=== PATIENT | male | born 1990 | race Caucasian/White ===

== ENCOUNTER 2018-02-07 09:18 | Emergency (ER) | payer SELFPAY ==
[2018-02-07 09:25] VITALS: BP 119/68; PULSE 64; RESP 20; TEMP 98.5; O2SAT 98
--- NOTE | 2018-02-07 09:25 | PD ---
HPI Chief Complaint: Chronic alcohol abuse Time Seen by Provider: 09:25 Travel History International Travel<30 days: No Contact w/Intl Traveler<30days: No Traveled to known affect area: No History of Present Illness HPI 27-year-old male came to the emergency room brought by EMS for "detox". Patient has been in this emergency room multiple times in past 2 weeks. He is from [facility] and is here visiting his grandparents indefinitely. He says he has been staying with some friends. He drinks a lot and drink last night 15 beers. Now he feels like he is "detoxing". Patient was completely normal and answering questions appropriately. Vital signs were stable. Upon asking if he tried any other detox places besides coming to the emergency room he said he did not know any place here. Patient is not suicidal. He says he drinks heavily for past 8-9 years. Patient appears somewhat disheveled. No pain or any other complaints. PFSH Past Medical History Narrative Medical List of his past medical, surgical, social and family history reviewed from the nursing note. Hx Anticoagulant Therapy: No Cardiovascular Problems: No Chemotherapy: No Cerebrovascular Accident: No Diabetes: No Diminished Hearing: No Hepatitis: Yes (C) Respiratory: No Social History Alcohol Use: Yes ( since a teenager. HX of blackouts in the past) Tobacco Use: Yes Substance Use: Yes (marijauna "or anything that makes me feel better") Allergies-Medications (Allergen,Severity, Reaction): Coded Allergies: haloperidol (Verified Allergy, Severe, 02/03/18) "I can't swallow" Comments List of his allergies reviewed from the nursing note Reported Meds & Prescriptions Reported Meds & Active Scripts Active Active Prescriptions or Reported Medications Unobtainable Narrative Medication List of his home medications reviewed from the nursing note Review of Systems Except as stated in HPI: all other systems reviewed are Neg Physical Exam Narrative GENERAL: Awake, alert, no obvious to SKIN: Focused skin assessment warm/dry. Peeling skin on the nose HEAD: Atraumatic. Normocephalic. EYES: Pupils equal and round. No scleral icterus. No injection or drainage. ENT: No nasal bleeding or discharge. Mucous membranes pink and moist. NECK: Trachea midline. No JVD. CARDIOVASCULAR: Regular rate and rhythm. No murmur appreciated. RESPIRATORY: No accessory muscle use. Clear to auscultation. Breath sounds equal bilaterally. GASTROINTESTINAL: Abdomen soft, non-tender, nondistended. Hepatic and splenic margins not palpable. MUSCULOSKELETAL: No obvious deformities. No clubbing. No cyanosis. No edema. NEUROLOGICAL: Awake and alert. No obvious cranial nerve deficits. Motor grossly within normal limits. Normal speech. PSYCHIATRIC: Appropriate mood and affect; insight and judgment normal. Data Data Last Documented VS Orders Orders Ed Discharge Order (02/07/18 09:31) MDM Medical Decision Making Medical Screen Exam Complete: Yes Emergency Medical Condition: Yes Medical Record Reviewed: Yes Differential Diagnosis Chronic alcohol abuse, requesting detox Narrative Course 9:30 AM patient was recommended [facility]. I am medically clearing him. He will be discharged. Procedures EKG Prior to Arrival: No Diagnosis Primary Impression: Chronic alcohol abuse Additional Instructions: Please check and to [facility] for alcohol detox. Scripts Unable to Obtain Active Prescriptions or Reported Meds Disposition: 01 DISCHARGE HOME Condition: Stable Tim Garcia MD February 07, 2018 09:25
== END 2018-02-07 09:49 | disposition home or self-care (01) ==
LOC: NEPD 09:18
DX: F10.10 Alcohol abuse, uncomplicated (principal); F12.90 Cannabis use, unspecified, uncomplicated; Z72.0 Tobacco use
CPT/HCPCS: 99283

== ENCOUNTER 2018-02-12 22:08 | Emergency (ER) | payer OTHER ==
[~2018-02-12] VITALS: Ht 180.3 cm; Wt 75.0 kg
[2018-02-12 22:14] VITALS: BP 119/70; PULSE 90; RESP 18; TEMP 98.5; O2SAT 97
--- NOTE | 2018-02-12 22:24 | PD ---
HPI Chief Complaint: Psychiatric Symptoms Time Seen by Provider: 22:19 Travel History International Travel<30 days: No Contact w/Intl Traveler<30days: No Traveled to known affect area: No History of Present Illness HPI This is a 27-year-old male presents under Dominique act initiated by the Police Department. According to his paperwork the patient was complaining of suicidal thoughts intermittently as well as concern for potential alcohol withdrawal as well as a negative reaction to ingesting marijuana. The patient reports a history of hepatitis C, long-term alcohol use. He is from [place], lives with his mother in a house there. He reports that he traveled down to [place] 2.5 weeks ago in an effort to visit his grandparents in [place]. He reports that he does not get along with his grandparents and they are concerned with the amount that he is drinking and thus he is currently homeless and staying in [facility] but he plans on returning to [place] at some point. Today he reports that he was at the beach and he smoked some marijuana but he believes that the marijuana may have had some other substance. He reports that it caused him to feel "weird" and have hallucinations. He is also complaining of passive suicidal thoughts for several weeks as well as concerned that he may develop alcohol withdrawal symptoms. He reports that today he drank 5 beers. He has been seen here 5 times in the past 2.5 weeks with similar complaints. No other complaints at this time. PFSH Past Medical History Hx Anticoagulant Therapy: No Cardiovascular Problems: No Chemotherapy: No Cerebrovascular Accident: No Diabetes: No Diminished Hearing: No Hepatitis: Yes (C) Respiratory: No Social History Alcohol Use: Yes ( since a teenager. HX of blackouts in the past) Tobacco Use: Yes Substance Use: Yes (marijauna "or anything that makes me feel better") Allergies-Medications (Allergen,Severity, Reaction): Coded Allergies: haloperidol (Verified Allergy, Severe, 02/03/18) "I can't swallow" Reported Meds & Prescriptions Reported Meds & Active Scripts Active Active Prescriptions or Reported Medications Unobtainable Review of Systems Except as stated in HPI: all other systems reviewed are Neg Physical Exam Narrative GENERAL: Well-developed well-nourished male in no acute distress sitting upright in hospital chair in the "signal 20" room SKIN: Warm and dry. HEAD: Atraumatic. Normocephalic. EYES: Pupils equal and round. No scleral icterus. No injection or drainage. ENT: No nasal bleeding or discharge. Mucous membranes pink and moist. NECK: Trachea midline. No JVD. CARDIOVASCULAR: Regular rate and rhythm. No murmur appreciated. RESPIRATORY: No accessory muscle use. Clear to auscultation. Breath sounds equal bilaterally. GASTROINTESTINAL: Abdomen soft, non-tender, nondistended. Hepatic and splenic margins not palpable. MUSCULOSKELETAL: No obvious deformities. No clubbing. No cyanosis. No edema. NEUROLOGICAL: Awake and alert. No obvious cranial nerve deficits. Motor grossly within normal limits. Normal speech. PSYCHIATRIC: Appropriate mood and affect; insight and judgment normal. Data Data Last Documented VS Vital Signs Date Time Temp Pulse Resp B/P (MAP) Pulse Ox O2 Delivery O2 Flow Rate FiO2 02/12/18 22:14 98.5 90 18 119/70 (86) 97 Orders Orders Psych Screen (02/12/18 22:20) Drug Screen, Random Urine (02/12/18 22:20) Alcohol (Ethanol) (02/12/18 22:20) MDM Medical Decision Making Medical Screen Exam Complete: Yes Emergency Medical Condition: Yes Medical Record Reviewed: Yes Differential Diagnosis Homelessness, malingering, alcohol dependence, polysubstance abuse, major depressive disorder, adjustment reaction, acute psychosis Narrative Course 27-year-old male presents under Dominique act for psychiatric evaluation. I reviewed his previous visits. I reviewed his lab work from his past visits. He has elevated liver enzymes secondary to hepatitis C. Typically his alcohol level is elevated as well. His lab work is otherwise unremarkable and will not be repeated today. A drug screen and alcohol level have been ordered. CIWA precautions initiated. Mental health screening discussed with the patient. Psychiatric screen ordered. The patient is medically cleared for psychiatric disposition. Diagnosis Primary Impression: Medical clearance for psychiatric admission Additional Impression: Alcoholism Scripts Unable to Obtain Active Prescriptions or Reported Meds Krish Capps February 12, 2018 22:24
[2018-02-12] MEDS ORDERED: FLUMAZENIL 0.5 MG/5 ML VIAL IV PUSH PRN (22:30)
[2018-02-12] MEDS ORDERED: LORazepam 1 MG TAB PO PRN (22:30)
[2018-02-12] MEDS ORDERED: LORazepam 2 MG/ML VIAL IV PUSH PRN ×4 (22:30)
[2018-02-12] MEDS ORDERED: LORazepam 2 MG TAB PO PRN (22:30)
[2018-02-13 06:49] VITALS: BP 112/57; PULSE 54; RESP 18; TEMP 98.7; O2SAT 99
--- NOTE | 2018-02-13 07:51 | PD ---
History of Present Illness Chief Complaint: Psychiatric Symptoms Time Seen by Provider: 07:15 Travel History International Travel<30 Days: No Contact w/Intl Traveler<30days: No Known affected area: No Legal Status Legal Status: Dominique Act Dominique Act Signed By: [facility], [facility] Manager History of Present Illness: Patient is a 27y/o male , single, no children from [place]. Present to the Emergency Department under a Dominique Act from [facility]'s Department, which states "made contact with Peter after he called into dispatch advising that he was suffering from the symptoms of alcohol withdrawal and having a negative reaction to recently ingesting marijuana. During contact with Peter, he advised to feeding pain that he was having suicidal thoughts on and off for a long time. Peter advised that he is having complications from hepatitis C and that along with his addiction is causing him to have suicidal thoughts. Deputy Barnes asked Peter if he was left alone tonight, if he would perhaps kill himself. Advise advised yes Peter was placed into protective custody under the Dominique act [facility] Patient has been in [place] for 2 1/2 weeks to visit his grandmother in [place]. He states that he has been drinking since the age of 15 year of age and is drinking approximately 10 tall beers per day or more if he has access. He has no mental health history. Endorses that his father is an alcoholic and lives local, but his parents to not want to help him. He smokes, only drug is marijuana and is UDS is positive for marijuana. He has been to [facility] for the assistance with his alcoholism x2 within the past two weeks prior to today. He endorses no suicidal or homicidal ideations at this time. Chart reviewed and patient discussed with PORFIRIO Duffy. Patient is in J-106. he is unkempt and disheveled. Alert and oriented .Gait is steady and normal. Attitude is cooperative. Speech is normal for rate, tone and volume. Affect is sad, flat and blunted. Mood is irritable. Thought process is normal and logical. Thought association is relevant and he thinking is concrete. Fund of knowledge is average . Concentration and attention is adequate. Endorses no suicidal or homicidal ideations. Patient is at low risk for self harm. He endorses that he is an alcoholic and that he wants to stop drinking. He states that he has attempted to stop drinking in the past but is inconsistent in his efforts. He is knowledgeable about AA and the 12 step program. He is articulate and is insight to what he needs to do to become sober. Based on the patient's presentation and desire to become sober will give him information on local resources and lift the [place] Act. PORFIRIO Duffy called [facility] to see if there is a Detox bed and there is no availability at this time. Will refer the patient to [facility] , [address] [place] [address] in [place] , and give him information regarding how to get on the list for Detox at [facility]. Dx: Mood Disorder, Alcohol induced. PFSH Past Medical History Hx Anticoagulant Therapy: No Cardiovascular Problems: No Chemotherapy: No Cerebrovascular Accident: No Diabetes: No Diminished Hearing: No Hepatitis: Yes (C) Respiratory: No Psychiatric History Psychiatric History No history of mental illness or care for mental illness. Hx Psychiatric Treatment: Denies any. No previous suiiced attempts. History of Inpatient Treatment: No Social History Hx Alcohol Use: Yes ( since a teenager. HX of blackouts in the past) Hx Tobacco Use: Yes Hx Substance Use: Yes Substance Use Type: Alcohol, Marijuana Hx of Substance Use Treatment: No Allergies-Medications (Allergen,Severity, Reaction): Coded Allergies: haloperidol (Verified Allergy, Severe, 02/03/18) "I can't swallow" Reported Meds & Prescriptions Reported Meds & Active Scripts Active Active Prescriptions or Reported Medications Unobtainable Mental Status Examination Appearance: Disheveled Consciousness: Alert Orientation: x4 Motor Activity: Normal gait Speech: Unremarkable Language: Adequate Fund of Knowledge: Adequate Attention and Concentration: Adequate Memory: Unremarkable Mood: Sad, Irritable Affect: Flat, Blunt Thought Process & Associations: Intact Thought Content: Appropriate Hallucination Type: None Delusion Type: None Suicidal Ideation: No Suicidal Plan: No Suicidal Intention: No Homicidal Ideation: No Homicidal Plan: No Homicidal Intention: No Insight: Adequate Judgment: Adequate MDM Medical Decision Making Medical Record Reviewed: Yes Assessment/Plan Patient is a 27 y/o male who has been in [place] for 2 1/2 weeks from [place]. He has a long history of alcohol abuse since age 15 and is seeking treatment . He is currently drinking 10 tall beers per day. He has parents locally and a grandmother in [place], but they are not longer supporting him. He has no history of mental illness. He is currently homeless. He endorses no suicidal ideations and is seeking help to stop drinking. At this time their is no Detox bed available. Patient is stable. Will lift the [place] Act and provide information on the [facility] to seek help as an outpatient until he can secure inpatient treatment. He will be provided information on the Detox program at [facility] as well. Orders Orders Psych Screen (02/12/18 22:20) Drug Screen, Random Urine (02/12/18 22:20) Alcohol (Ethanol) (02/12/18 22:20) Alcohol Withdrawal Asmt-Ciwa ONCE (02/12/18 22:20) Flumazenil Inj (Romazicon Inj) (02/12/18 22:30) Lorazepam (Ativan) (02/12/18 22:30) Lorazepam Inj (Ativan Inj) (02/12/18 22:30) Lorazepam (Ativan) (02/12/18 22:30) Lorazepam Inj (Ativan Inj) (02/12/18 22:30) Lorazepam Inj (Ativan Inj) (02/12/18 22:30) Lorazepam Inj (Ativan Inj) (02/12/18 22:30) Diet Regular Basic (02/13/18 Breakfast) Results Vital Signs Date Time Temp Pulse Resp B/P (MAP) Pulse Ox O2 Delivery O2 Flow Rate FiO2 02/13/18 06:49 98.7 54 18 112/57 (75) 99 Room Air 02/12/18 22:14 98.5 90 18 119/70 (86) 97 Laboratory Tests Test 02/12/18 22:30 02/12/18 23:25 Ethyl Alcohol Level 40 Urine Opiates Screen NEG Urine Barbiturates Screen NEG Urine Amphetamines Screen NEG Urine Benzodiazepines Screen NEG Urine Cocaine Screen NEG Urine Cannabinoids Screen POS Diagnosis Primary Impression: Alcohol-induced mood disorder Prescriptions Unable to Obtain Active Prescriptions or Reported Meds Pauline Laboy February 13, 2018 07:51
--- NOTE | 2018-02-13 07:56 | PD ---
Physical Exam Time Seen by Provider: 07:55 Narrative Please refer to previous providers documentation for details surrounding the patient's current visit. Data Data Last Documented VS Vital Signs Date Time Temp Pulse Resp B/P (MAP) Pulse Ox O2 Delivery O2 Flow Rate FiO2 02/13/18 06:49 98.7 54 18 112/57 (75) 99 Room Air Orders Orders Psych Screen (02/12/18 22:20) Drug Screen, Random Urine (02/12/18 22:20) Alcohol (Ethanol) (02/12/18 22:20) Alcohol Withdrawal Asmt-Ciwa ONCE (02/12/18 22:20) Flumazenil Inj (Romazicon Inj) (02/12/18 22:30) Lorazepam (Ativan) (02/12/18 22:30) Lorazepam Inj (Ativan Inj) (02/12/18 22:30) Lorazepam (Ativan) (02/12/18 22:30) Lorazepam Inj (Ativan Inj) (02/12/18 22:30) Lorazepam Inj (Ativan Inj) (02/12/18 22:30) Lorazepam Inj (Ativan Inj) (02/12/18 22:30) Diet Regular Basic (02/13/18 Breakfast) Ed Discharge Order (02/13/18 07:54) Labs Laboratory Tests Test 02/12/18 22:30 02/12/18 23:25 Ethyl Alcohol Level 40 MG/DL Urine Opiates Screen NEG Urine Barbiturates Screen NEG Urine Amphetamines Screen NEG Urine Benzodiazepines Screen NEG Urine Cocaine Screen NEG Urine Cannabinoids Screen POS MDM Medical Record Reviewed: Yes Supervised Visit with [place]: No Narrative Course Patient has been seen and evaluated, medically clear, and evaluated by psychiatry. With no further medical needs, patient is discharged at this time. Diagnosis Primary Impression: Alcohol-induced mood disorder Referrals: [facility] (Out patient) Patient Instructions: Abuse of Alcohol (ED), General Instructions Additional Instruction: Follow-up with a primary care provider Consume alcohol in moderation Return immediately with acute worsening symptoms Scripts Unable to Obtain Active Prescriptions or Reported Meds Disposition: 01 DISCHARGE HOME Condition: Stable Mila Cabello NICK February 13, 2018 07:56
--- NOTE | 2018-02-13 08:00 | PD ---
History of Present Illness Chief Complaint: Psychiatric Symptoms Travel History International Travel<30 Days: No Contact w/Intl Traveler<30days: No Known affected area: No Legal Status Legal Status: Dominique Act Dominique Act Signed By: NeprisJoselin Harper [facility] Past Medical History Hx Anticoagulant Therapy: No Cardiovascular Problems: No Chemotherapy: No Cerebrovascular Accident: No Diabetes: No Diminished Hearing: No Hepatitis: Yes (C) Respiratory: No Psychiatric History Psychiatric History Hx Psychiatric Treatment: Denies any. No previous suiiced attempts. History of Inpatient Treatment: No Social History Hx Alcohol Use: Yes ( since a teenager. HX of blackouts in the past) Hx Tobacco Use: Yes Hx Substance Use: Yes Substance Use Type: Alcohol, Marijuana Hx of Substance Use Treatment: No Allergies-Medications (Allergen,Severity, Reaction): Coded Allergies: haloperidol (Verified Allergy, Severe, 02/03/18) "I can't swallow" Reported Meds & Prescriptions Reported Meds & Active Scripts Active Active Prescriptions or Reported Medications Unobtainable Mental Status Examination Appearance: Disheveled Consciousness: Alert Orientation: x4 Motor Activity: Normal gait Speech: Unremarkable Language: Adequate Fund of Knowledge: Adequate Attention and Concentration: Adequate Memory: Unremarkable Mood: Sad, Irritable Affect: Flat, Blunt Thought Process & Associations: Intact Thought Content: Appropriate Hallucination Type: None Delusion Type: None Suicidal Ideation: No Suicidal Plan: No Suicidal Intention: No Homicidal Ideation: No Homicidal Plan: No Homicidal Intention: No Insight: Adequate Judgment: Adequate MDM Orders Orders Psych Screen (02/12/18 22:20) Drug Screen, Random Urine (02/12/18 22:20) Alcohol (Ethanol) (02/12/18 22:20) Alcohol Withdrawal Asmt-Ciwa ONCE (02/12/18 22:20) Flumazenil Inj (Romazicon Inj) (02/12/18 22:30) Lorazepam (Ativan) (02/12/18 22:30) Lorazepam Inj (Ativan Inj) (02/12/18 22:30) Lorazepam (Ativan) (02/12/18 22:30) Lorazepam Inj (Ativan Inj) (02/12/18 22:30) Lorazepam Inj (Ativan Inj) (02/12/18 22:30) Lorazepam Inj (Ativan Inj) (02/12/18 22:30) Diet Regular Basic (02/13/18 Breakfast) Results Vital Signs Date Time Temp Pulse Resp B/P (MAP) Pulse Ox O2 Delivery O2 Flow Rate FiO2 02/13/18 06:49 98.7 54 18 112/57 (75) 99 Room Air 02/12/18 22:14 98.5 90 18 119/70 (86) 97 Laboratory Tests Test 02/12/18 22:30 02/12/18 23:25 Ethyl Alcohol Level 40 Urine Opiates Screen NEG Urine Barbiturates Screen NEG Urine Amphetamines Screen NEG Urine Benzodiazepines Screen NEG Urine Cocaine Screen NEG Urine Cannabinoids Screen POS Diagnosis Primary Impression: Alcohol-induced mood disorder Departure Forms: Tests/Procedures Patient Instructions: General Instructions Additional Instructions: Follow up with the [facility] at [address] [place] [address] for outpatient alcohol/drug treatment. Follow up at [facility] in [place] if inpatient detox is desired. Prescriptions Unable to Obtain Active Prescriptions or Reported Meds Disposition: 01 DISCHARGE HOME Condition: Stable Pauline Laboy February 13, 2018 08:00
== END 2018-02-13 08:41 | disposition home or self-care (01) ==
LOC: NEDAMB 22:08 → NEPJ 02-13 08:41
DX: F10.24 Alcohol dependence with alcohol-induced mood disorder (principal); F12.90 Cannabis use, unspecified, uncomplicated; B19.20 Unspecified viral hepatitis C without hepatic coma; Y90.2 Blood alcohol level of 40-59 mg/100 ml
CPT/HCPCS: 80307; 99283

== ENCOUNTER 2018-03-08 18:28 | Emergency (ER) | payer SELFPAY ==
[~2018-03-08] VITALS: Ht 182.9 cm; Wt 80.0 kg
[2018-03-08 19:31] VITALS: BP 119/71; PULSE 65; RESP 16; TEMP 98.3; O2SAT 99
[2018-03-08 23:55] VITALS: BP 133/75; PULSE 71; RESP 16; O2SAT 99
[2018-03-09] MEDS ORDERED: CEPHALEXIN MONOHYDRATE 500 MG CAP PO ONE
[2018-03-09] MEDS ORDERED: SULFAMETHOXAZOLE-TRIMETHOPRIM DS 800-160 MG TAB PO ONE
[2018-03-09] MEDS ORDERED: CEPH-460 PO (00:03)
[2018-03-09] MEDS ORDERED: BACT800T5 PO (00:03)
--- NOTE | 2018-03-09 00:21 | PD ---
HPI Chief Complaint: Skin Problem Time Seen by Provider: 23:55 Travel History International Travel<30 days: No Contact w/Intl Traveler<30days: No Traveled to known affect area: No History of Present Illness HPI 27-year-old male with right foot pain. He reports that he wears sandals and he developed a blister on the dorsum of his right foot 1.5 weeks ago. The blister popped and he has developed some redness and pain at the site of the blister. Pain is aching, constant, worse with palpation or when wearing shoes. No relieving factors. No fevers or chills. No associated signs or symptoms. No other complaints. PFSH Past Medical History Hx Anticoagulant Therapy: No Cardiovascular Problems: No Chemotherapy: No Cerebrovascular Accident: No Diabetes: No Patient Takes Glucophage: No Diminished Hearing: No Hepatitis: Yes (C) Respiratory: No Immunizations Current: Yes Tetanus Vaccination: < 5 Years Influenza Vaccination: No Social History Alcohol Use: Yes ( since a teenager. HX of blackouts in the past) Tobacco Use: Yes (1PPD) Substance Use: Yes Allergies-Medications (Allergen,Severity, Reaction): Coded Allergies: haloperidol (Verified Allergy, Severe, 03/08/18) "I can't swallow" Reported Meds & Prescriptions Reported Meds & Active Scripts Active Keflex (Cephalexin) 500 Mg Cap 500 Mg PO Q8H Bactrim DS (Sulfamethoxazole-Trimethoprim) 800-160 Mg Tab 1 Tab PO BID Review of Systems Except as stated in HPI: all other systems reviewed are Neg Physical Exam Narrative GENERAL: Well-developed well-nourished male in no acute distress SKIN: Warm and dry. On the dorsum of the right foot there is an area of excoriation with some surrounding erythema. There is some bloody drainage with palpation but no purulent drainage. There is no induration or fluctuance. HEAD: Atraumatic. Normocephalic. EYES: Pupils equal and round. No scleral icterus. No injection or drainage. ENT: No nasal bleeding or discharge. Mucous membranes pink and moist. NECK: Trachea midline. No JVD. CARDIOVASCULAR: Regular rate and rhythm. No murmur appreciated. RESPIRATORY: No accessory muscle use. Clear to auscultation. Breath sounds equal bilaterally. GASTROINTESTINAL: Abdomen soft, non-tender, nondistended. Hepatic and splenic margins not palpable. MUSCULOSKELETAL: No obvious deformities. No edema. NEUROLOGICAL: Awake and alert. No obvious cranial nerve deficits. Motor grossly within normal limits. Normal speech. Data Data Last Documented VS Vital Signs Date Time Temp Pulse Resp B/P (MAP) Pulse Ox O2 Delivery O2 Flow Rate FiO2 03/08/18 23:55 71 16 133/75 (94) 99 Room Air 03/08/18 19:31 98.3 Orders Orders Sulfamet-Trimeth Ds 800-160 Mg (Bactrim (03/09/18 00:00) Cephalexin (Keflex) (03/09/18 00:00) Ed Discharge Order (03/09/18 00:02) Wound Culture And Gram Stain (03/09/18 00:04) [facility] Medical Decision Making Medical Screen Exam Complete: Yes Emergency Medical Condition: Yes Medical Record Reviewed: Yes Differential Diagnosis Cellulitis, abscess, osteomyelitis Narrative Course Examination is consistent with mild cellulitis on the dorsum right foot. Wound culture performed. The patient is being started on Bactrim and Keflex. Discussed signs and symptoms that would warrant returning to the emergency room. Diagnosis Primary Impression: Cellulitis of right foot Additional Instructions: Medication as prescribed. Warm compresses several times a day. Return for new or worsening symptoms. Med/Other Pt SpecificInfo: Prescription(s) given Scripts Cephalexin (Keflex) 500 Mg Cap 500 MG PO Q8H for Infection, #30 CAP 0 Refills Prov: Alisson Schmitz DO 03/09/18 Sulfamethoxazole-Trimethoprim (Bactrim DS) 800-160 Mg Tab 1 TAB PO BID for Infection, #20 TAB 0 Refills Prov: Alisson Schmitz DO 03/09/18 Disposition: 01 DISCHARGE HOME Condition: Stable Krish Capps Mar 09, 2018 00:20
== END 2018-03-09 00:32 | disposition home or self-care (01) ==
LOC: NEPD 18:28
DX: L03.115 Cellulitis of right lower limb (principal); F17.200 Nicotine dependence, unspecified, uncomplicated
CPT/HCPCS: 86403; 87070; 87186; 99283

== ENCOUNTER 2018-03-24 12:55 | Emergency (ER) | payer SELFPAY ==
[~2018-03-24] VITALS: Ht 152.4 cm; Wt 80.0 kg
[~2018-03-24 12:55] MED LIST: BACT800T5 PO; CEPH-460 PO
[2018-03-24 13:00] VITALS: BP 137/77; PULSE 87; RESP 16; TEMP 98; O2SAT 100
--- NOTE | 2018-03-24 13:22 | PD ---
HPI Chief Complaint: Suicide Ideation/Attempt Time Seen by Provider: 13:10 Travel History International Travel<30 days: No Contact w/Intl Traveler<30days: No Traveled to known affect area: No History of Present Illness HPI 27-year-old male presents emergency department voluntarily with history of drinking alcohol and smoking meth for the past week. Patient now feels he is hallucinating, and feeling suicidal or homicidal. Patient denies any illness or medical issues otherwise. He is here for help and wants to get clean. He has no specific plan. He is cooperative. He is allergic to haloperidol PFSH Past Medical History Hx Anticoagulant Therapy: No Cardiovascular Problems: No Chemotherapy: No Cerebrovascular Accident: No Diabetes: No Diminished Hearing: No Hepatitis: Yes (C) Respiratory: No Immunizations Current: Yes Social History Alcohol Use: Yes ( since a teenager. HX of blackouts in the past) Tobacco Use: Yes (1PPD) Substance Use: Yes Allergies-Medications (Allergen,Severity, Reaction): Coded Allergies: haloperidol (Verified Allergy, Severe, 03/08/18) "I can't swallow" Reported Meds & Prescriptions Reported Meds & Active Scripts Active Keflex (Cephalexin) 500 Mg Cap 500 Mg PO Q8H Bactrim DS (Sulfamethoxazole-Trimethoprim) 800-160 Mg Tab 1 Tab PO BID Review of Systems Except as stated in HPI: all other systems reviewed are Neg General / Constitutional: No: Fever Eyes: No: Visual changes HENT: No: Headaches Cardiovascular: No: Chest Pain or Discomfort Respiratory: No: Shortness of Breath Gastrointestinal: No: Abdominal Pain Genitourinary: No: Dysuria Musculoskeletal: No: Pain Skin: No Rash Neurologic: No: Weakness Psychiatric: No: Depression Endocrine: No: Polydipsia Hematologic/Lymphatic: No: Easy Bruising Physical Exam Narrative GENERAL: Patient is alert and oriented 3, and cooperative. SKIN: Warm and dry. Normal color. Normal turgor. No signs of trauma or drug use. HEAD: Atraumatic. Normocephalic. EYES: Pupils equal and round. No scleral icterus. No injection or drainage. ENT: No nasal bleeding or discharge. Mucous membranes pink and moist. Pharynx is clear. Airways patent NECK: Trachea midline. Supple and nontender. CARDIOVASCULAR: Regular rate and rhythm. No murmurs gallops or rubs. RESPIRATORY: No accessory muscle use. Clear to auscultation. Breath sounds equal bilaterally. GASTROINTESTINAL: Abdomen soft, non-tender, nondistended. Hepatic and splenic margins not palpable. MUSCULOSKELETAL: Extremities without clubbing, cyanosis, or edema. No obvious deformities. NEUROLOGICAL: Awake and alert. No obvious cranial nerve deficits. Motor grossly within normal limits. Five out of 5 muscle strength in the arms and legs. Normal speech. PSYCHIATRIC: Appropriate mood and affect; insight and judgment normal. Data Data Last Documented VS Vital Signs Date Time Temp Pulse Resp B/P (MAP) Pulse Ox O2 Delivery O2 Flow Rate FiO2 03/24/18 13:00 98.0 87 16 137/77 (97) 100 Orders Orders Complete Blood Count With Diff (03/24/18 13:10) Comprehensive Metabolic Panel (03/24/18 13:10) Thyroid Stimulating Hormone (03/24/18 13:10) Urinalysis - C+S If Indicated (03/24/18 13:10) Psych Screen (03/24/18 13:10) Drug Screen, Random Urine (03/24/18 13:10) Alcohol (Ethanol) (03/24/18 13:10) MDM Medical Decision Making Medical Screen Exam Complete: Yes Emergency Medical Condition: Yes Medical Record Reviewed: Yes Differential Diagnosis Polysubstance abuse. Suicidal ideation. Hallucination. Narrative Course Patient is cooperative. Labs ordered per psychiatric protocol. Patient is medically cleared for psychiatric evaluation. Psych screen is ordered. Can Bill Mar 24, 2018 13:22
[2018-03-24 13:54] LABS: AUTOMATED NEUTROPHIL # 4.4 TH/MM3 (1.8-7.7); BASOPHIL % 0.2 % (0.0-2.0); EOSINOPHIL # 0.1 TH/MM3 (0-0.4); HEMATOCRIT 39.9 % (39.0-51.0); HEMOGLOBIN 13.4 GM/DL (13.0-17.0); LYMPH % 29.2 % (9.0-44.0); LYMPHOCYTE # 2.1 TH/MM3 (1.0-4.8); MEAN CELL VOLUME 93.6 FL (80.0-100.0); MEAN CORPUSCULAR HEMOGLOBIN 31.5 PG (27.0-34.0); MEAN CORPUSCULAR HGB CONC 33.6 % (32.0-36.0); MEAN PLATELET VOLUME 7.6 FL (7.0-11.0); MONO % 6.8 % (0.0-8.0); MONOCYTE # 0.5 TH/MM3 (0-0.9); NEUT % 62.8 % (16.0-70.0); PLATELET COUNT 216 TH/MM3 (150-450); RED BLOOD COUNT 4.26 MIL/MM3 (4.50-5.90); RED CELL DISTRIBUTION WIDTH 14.4 % (11.6-17.2)
[2018-03-24 13:56] LABS: BILIRUBIN, URINE NEG (NEG); BLOOD, URINE NEG (NEG); GLUCOSE,URINE NEG (NEG); KETONE, URINE NEG (NEG); NITRITE,URINE NEG (NEG); URINE COLOR Straw (YELLW/STRAW); URINE LEUKOCYTE ESTERASE NEG (NEG)
[2018-03-24 14:16] LABS: ALBUMIN 4.5 GM/DL (3.4-5.0); AST (GOT) 148 U/L (15-37); BICARBONATE 22.2 MEQ/L (21.0-32.0); BLOOD UREA NITROGEN 7 MG/DL (7-18); CALCIUM 9.4 MG/DL (8.5-10.1); CHLORIDE 99 MEQ/L (98-107); CREATININE 0.94 MG/DL (0.60-1.30); GLOMERULAR FILTRATION RATE 96 ML/MIN (>89); GLUCOSE,RANDOM 86 MG/DL (74-106); SODIUM (NA) 133 MEQ/L (136-145)
[2018-03-24 14:17] LABS: ALT (GPT) 280 U/L (12-78)
[2018-03-24 14:27] LABS: ALKALINE PHOSPHATASE 74 U/L (45-117); TOTAL BILIRUBIN ADULT 0.6 MG/DL (0.2-1.0); TOTAL PROTEIN 8.6 GM/DL (6.4-8.2)
[2018-03-24] MEDS ORDERED: LORazepam 1 MG TAB PO ONE ×2 (16:45→18:45)
[2018-03-24] MEDS ORDERED: IBUPROFEN 600 MG TAB PO ONE (17:45)
[2018-03-24 18:22] VITALS: BP 130/84; PULSE 92; RESP 18; O2SAT 100
[2018-03-24] MEDS ORDERED: diphenhydrAMINE HCL 50 MG CAP PO ONE (19:15)
[2018-03-24] MEDS ORDERED: OLANZapine IM 10 MG VIAL IM ONE (20:15)
[2018-03-24 22:38] VITALS: RESP 16
[2018-03-25 06:52] VITALS: BP 98/50; PULSE 55; RESP 16; TEMP 97; O2SAT 100
[2018-03-25 10:36] VITALS: BP 94/47; PULSE 56; RESP 16; O2SAT 98
[2018-03-25 14:02] VITALS: BP 118/61; PULSE 86; RESP 18; O2SAT 100
[2018-03-25] MEDS ORDERED: LORazepam 2 MG TAB PO PRN (16:30)
[2018-03-25] MEDS ORDERED: LORazepam 1 MG TAB PO PRN (16:30)
[2018-03-25] MEDS ORDERED: LORazepam 2 MG/ML VIAL IV PUSH PRN ×4 (16:30)
[2018-03-25 18:43] VITALS: BP 95/50; PULSE 68; RESP 18; O2SAT 99
[2018-03-25 22:33] VITALS: BP 112/53; PULSE 50; RESP 16; O2SAT 99
[2018-03-26 03:00] VITALS: BP 94/60; PULSE 63; RESP 18; O2SAT 98
--- NOTE | 2018-03-26 09:26 | PD ---
Physical Exam Date Seen by Provider: Mar 26, 2018 Time Seen by Provider: 09:24 Narrative 27-year-old male previously medically cleared for psychiatric evaluation under voluntary basis, has been seen by psychiatric staff and deemed psychiatrically stable for discharge at this time. Patient remains medically stable for discharge at this time. Follow-up will be based on psychiatric note. Data Data Last Documented VS Vital Signs Date Time Temp Pulse Resp B/P (MAP) Pulse Ox O2 Delivery O2 Flow Rate FiO2 03/26/18 03:00 63 18 94/60 (71) 98 Room Air 03/25/18 06:52 97.0 Orders Orders Complete Blood Count With Diff (03/24/18 13:10) Comprehensive Metabolic Panel (03/24/18 13:10) Thyroid Stimulating Hormone (03/24/18 13:10) Urinalysis - C+S If Indicated (03/24/18 13:10) Psych Screen (03/24/18 13:10) Drug Screen, Random Urine (03/24/18 13:10) Alcohol (Ethanol) (03/24/18 13:10) Diet Regular Basic (03/24/18 Dinner) Lorazepam (Ativan) (03/24/18 16:45) Ibuprofen (Motrin) (03/24/18 17:45) Lorazepam (Ativan) (03/24/18 18:45) Diphenhydramine (Benadryl) (03/24/18 19:15) Olanzapine Inj (Zyprexa Inj) (03/24/18 20:15) Diet Regular Basic (03/25/18 Breakfast) Diet Regular Basic (03/25/18 Lunch) Diet Regular Basic (03/25/18 Dinner) Alcohol Withdrawal Asmt-Ciwa ONCE (03/25/18 16:25) Lorazepam (Ativan) (03/25/18 16:30) Lorazepam Inj (Ativan Inj) (03/25/18 16:30) Lorazepam (Ativan) (03/25/18 16:30) Lorazepam Inj (Ativan Inj) (03/25/18 16:30) Lorazepam Inj (Ativan Inj) (03/25/18 16:30) Lorazepam Inj (Ativan Inj) (03/25/18 16:30) Diet Regular Basic (03/26/18 Breakfast) Labs Laboratory Tests Test 03/24/18 13:35 White Blood Count 7.0 TH/MM3 Red Blood Count 4.26 MIL/MM3 Hemoglobin 13.4 GM/DL Hematocrit 39.9 % Mean Corpuscular Volume 93.6 FL Mean Corpuscular Hemoglobin 31.5 PG Mean Corpuscular Hemoglobin Concent 33.6 % Red Cell Distribution Width 14.4 % Platelet Count 216 TH/MM3 Mean Platelet Volume 7.6 FL Neutrophils (%) (Auto) 62.8 % Lymphocytes (%) (Auto) 29.2 % Monocytes (%) (Auto) 6.8 % Eosinophils (%) (Auto) 1.0 % Basophils (%) (Auto) 0.2 % Neutrophils # (Auto) 4.4 TH/MM3 Lymphocytes # (Auto) 2.1 TH/MM3 Monocytes # (Auto) 0.5 TH/MM3 Eosinophils # (Auto) 0.1 TH/MM3 Basophils # (Auto) 0.0 TH/MM3 CBC Comment DIFF FINAL Differential Comment Urine Color Straw Urine Turbidity CLEAR Urine pH 6.0 Urine Specific [place] 1.004 Urine Protein NEG mg/dL Urine Glucose (UA) NEG mg/dL Urine Ketones NEG mg/dL Urine Occult Blood NEG Urine Nitrite NEG Urine Bilirubin NEG Urine Urobilinogen LESS THAN 2 mg/dL Urine Leukocyte Esterase NEG Urine RBC LESS THAN 1 /hpf Urine WBC 2 /hpf Microscopic Urinalysis Comment CULT NOT INDICATED Blood Urea Nitrogen 7 MG/DL Creatinine 0.94 MG/DL Random Glucose 86 MG/DL Total Protein 8.6 GM/DL Albumin 4.5 GM/DL Calcium Level 9.4 MG/DL Alkaline Phosphatase 74 U/L Aspartate Amino Transf (AST/SGOT) 148 U/L Alanine Aminotransferase (ALT/SGPT) 280 U/L Total Bilirubin 0.6 MG/DL Sodium Level 133 MEQ/L Potassium Level 3.6 MEQ/L Chloride Level 99 MEQ/L Carbon Dioxide Level 22.2 MEQ/L Anion Gap 12 MEQ/L Estimat Glomerular Filtration Rate 96 ML/MIN Thyroid Stimulating Hormone 3rd Gen 1.020 uIU/ML Urine Opiates Screen NEG Urine Barbiturates Screen NEG Urine Amphetamines Screen POS Urine Benzodiazepines Screen NEG Urine Cocaine Screen NEG Urine Cannabinoids Screen POS Ethyl Alcohol Level 31 MG/DL [facility] Medical Record Reviewed: Yes Supervised Visit with [place]: Yes Narrative Course 27-year-old male previously medically cleared for psychiatric evaluation under voluntary basis, has been seen by psychiatric staff and deemed psychiatrically stable for discharge at this time. Patient remains medically stable for discharge at this time. Follow-up will be based on psychiatric note. Diagnosis Primary Impression: Polysubstance abuse Referrals: [facility] Patient Instructions: General Instructions Scripts No Active Prescriptions or Reported Meds Disposition: 01 DISCHARGE HOME Condition: Stable Can Bill Mar 26, 2018 09:26
--- NOTE | 2018-03-26 16:04 | PD.PSY.CON ---
Provisional Diagnosis Admission Date [place] I. Polysubstance dependence including alcohol, cannabis, amphetamines, history of depression [place] II. 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 Hepatitis C History of Present Illness Service Psychiatry Consult Requested By ER Reason for Consult Suicidal ideation Primary Care Physician No Primary Care Physician HPI The patient is 27-year-old man, homeless, with poor family and social support, unemployed, with psychiatric history of polysubstance dependence including alcohol, cannabis, amphetamines, previous psychiatric hospitalizations , multiple ER visits in the context of acute substance intoxication, medical history of hepatitis C, who presents emergency department voluntarily with history of drinking alcohol and smoking meth for the past week. Patient now feels he is hallucinating, and feeling suicidal or homicidal. Patient denies any illness or medical issues otherwise. He is here for help and wants to get clean. He has no specific plan. He is cooperative. He is allergic to haloperidol. EMR was reviewed. Case discussed with ER team. On psychiatric evaluation today the patient is clinically sober, requesting to be transferred to detox. He denies depressive symptoms, denies anxiety, denies tena, denies psychosis, he denies suicidal enemas ideation, he denies visual and auditory hallucinations. He is logical, coherent, goal-directed. No withdrawal observed Review of Systems Constitutional: DENIES: Diaphoretic episodes, Fatigue, Fever, Weight gain, Weight loss, Chills, Dizziness, Change in appetite, Night Sweats Endocrine: DENIES: Heat/cold intolerance, Polydipsia, Polyuria, Polyphagia Eyes: DENIES: Blurred vision, Diplopia, Eye inflammation, Eye pain, Vision loss , Photosensitivity, Double Vision Ears, nose, mouth, throat: DENIES: Tinnitus, Hearing loss, Vertigo, Nasal discharge, Oral lesions, Throat pain, Hoarseness, Ear Pain, Running Nose, Epistaxis, Sinus Pain, Toothache, Odynophagia Cardiovascular: DENIES: Chest pain, Palpitations, Syncope, Dyspnea on Exertion , PND, Lower Extremity Edema, Orthopnea, Claudication Gastrointestinal: DENIES: Abdominal pain, Black stools, Bloody stools, Constipation, Diarrhea, Nausea, Vomiting, Difficulty Swallowing, Anorexia Genitourinary: DENIES: Sexual dysfunction, Urinary frequency, Urinary incontinence, Urgency, Hematuria, Dysuria, Nocturia, Penile Discharge, Testicular Pain, Testicular Swelling Musculoskeletal: DENIES: Joint pain, Muscle aches, Stiffness, Joint Swelling, Back pain, Neck pain Integumentary: DENIES: Abnormal pigmentation, Nail changes, Pruritus, Rash Hematologic/lymphatic: DENIES: Bruising, Lymphadenopathy Immunologic/allergic: DENIES: Eczema, Urticaria Neurologic: DENIES: Abnormal gait, Headache, Localized weakness, Paresthesias, Seizures, Speech Problems, Tremor, Poor Balance Psychiatric: DENIES: Anxiety, Confusion, Mood changes, Depression, Hallucinations, Agitation, Suicidal Ideation, Homicidal Ideation, Delusions Past Family Social History Coded Allergies: haloperidol (Verified Allergy, Severe, 03/24/18) "I can't swallow" Discontinued Scripts Cephalexin (Keflex) 500 Mg Cap, 500 MG PO Q8H for Infection, #30 CAP 0 Refills Prov:SchmitzAlisson briggs 03/09/18 Sulfamethoxazole-Trimethoprim (Bactrim DS) 800-160 Mg Tab, 1 TAB PO BID for Infection, #20 TAB 0 Refills Prov:Alisson Schmitz DO 03/09/18 Family Psych History No family psychiatric history Social History Patient was born and raised in [place], he is homeless, unemployed, single, highest level of education is 11th grade Physical Exam Vital Signs Vital Signs Date Time Temp Pulse Resp B/P (MAP) Pulse Ox O2 Delivery O2 Flow Rate FiO2 03/26/18 09:51 03/26/18 03:00 63 18 98 Room Air 03/25/18 06:52 97.0 Mental Status Examination Appearance: Appropriate Consciousness: Alert Orientation: x4 Motor Activity: Normal gait Speech: Unremarkable Language: Adequate Fund of Knowledge: Adequate Attention and Concentration: Adequate Memory: Unremarkable Mood: Appropriate Affect: Appropriate Thought Process & Associations: Intact Thought Content: Appropriate Hallucination Type: None Delusion Type: None Suicidal Ideation: No Suicidal Plan: No Suicidal Intention: No Homicidal Ideation: No Homicidal Plan: No Homicidal Intention: No Insight: Adequate Judgment: Adequate Assessment & Plan Problem List: (1) Polysubstance dependence ICD Codes: F19.20 - Other psychoactive substance dependence, uncomplicated Assessment & Plan: At the moment of the psychiatric evaluation the patient does not present any neuropsychiatric symptoms that require an immediate psychiatric intervention. The patient denies symptomatology of depression, anxiety, tena and psychosis. He is now clinically sober, denies suicidal and homicidal ideation, he denies visual and auditory hallucinations. The patient reported psychosis was most probably the result of acute multiple substance intoxication including amphetamines and alcohol and no secondary to a primary psychotic disorder. During my evaluation and based on EMR review, there are several findings inpatient history to suggest a cluster B personality pathology. He does not meet criteria for involuntary psychiatric admission. Will be referred to [facility] for detox. Assessment & Plan Estimated LOS: days Nj Cordero MD Mar 26, 2018 16:04
== END 2018-03-26 10:08 | disposition home or self-care (01) ==
LOC: NEPD 12:55 → NEPJ 03-26 10:08
DX: F15.229 Other stimulant dependence with intoxication, unspecified (principal); F10.229 Alcohol dependence with intoxication, unspecified; Y90.1 Blood alcohol level of 20-39 mg/100 ml; B19.20 Unspecified viral hepatitis C without hepatic coma; F32.9 Major depressive disorder, single episode, unspecified; F60.9 Personality disorder, unspecified; R45.851 Suicidal ideations; Z59.0 Homelessness; F17.200 Nicotine dependence, unspecified, uncomplicated
CPT/HCPCS: 80053; 80307; 81001; 84443; 85025; 96372; 99283; Q0163

== ENCOUNTER 2018-03-26 16:36 | Emergency (ER) | payer SELFPAY ==
[~2018-03-26] VITALS: Ht 182.9 cm; Wt 75.0 kg
[2018-03-26 17:04] VITALS: BP 116/66; PULSE 99; RESP 15; TEMP 98.4; O2SAT 97
== END 2018-03-26 17:45 | disposition left against medical advice (07) ==
LOC: NED 16:36
DX: F99 Mental disorder, not otherwise specified (principal)
CPT/HCPCS: 99281

== ENCOUNTER 2018-04-07 11:59 | Inpatient (IN) ==
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
--- NOTE | 2018-04-07 15:09 | XR ---
EXAM DATE: 04/07/2018 2:59 PM EDT AGE/SEX: 27 years / Male INDICATIONS: Headache and neck pain from falling backwards. CLINICAL DATA: This is the patient's initial encounter. Patient reports that signs and symptoms have been present for 1 day and indicates a pain score of 3/10. MEDICAL/SURGICAL HISTORY: None. None. COMPARISON: No prior exams available for comparison. FINDINGS: A single AP view of the chest demonstrates the lungs to be symmetrically aerated without evidence of mass, infiltrate or effusion. The cardiomediastinal contours are unremarkable. Osseous structures a re intact. CONCLUSION: No acute findings. Electronically signed by: Mauro Knowles MD 04/07/2018 3:08 PM EDT
[2018-04-07 15:39] LABS: Baso % (Auto) 0.3 % (0.0-2.0); Eos # (Auto) 0.1 th/mm3 (0.0-0.4); Eos % (Auto) 1.5 % (0.0-4.0); Hematocrit 38.5 % (39.0-51.0); Hemoglobin 13.2 gm/dL (13.0-17.0); Lymph # (Auto) 2.4 th/mm3 (1.0-4.8); Lymph % (Auto) 38.3 % (9.0-44.0); Mean Corpuscular HGB Conc 34.2 % (32.0-36.0); Mean Corpuscular Volume 93.7 fL (80.0-100.0); Mono # (Auto) 0.7 th/mm3 (0.0-0.9); Mono % (Auto) 11.8 % (0.0-8.0); Neut % (Auto) 48.1 % (16.0-70.0); Platelet Count 157 th/mm3 (150-450); Red Blood Count 4.11 mil/mm3 (4.50-5.90); Red Cell Distribution Width 15.1 % (11.6-17.2); White Blood Count 6.2 th/mm3 (4.0-11.0)
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
[2018-04-07] MEDS ORDERED: Labetalol HCl Inj 100 MG/20 ML Vial IV.PUSH PRN (15:41)
[2018-04-07] MEDS ORDERED: Aluminum/Magnesium/Simethacone Susp 30 ML UDC PO PRN (15:41)
[2018-04-07] MEDS ORDERED: Magnesium Sulfate Inj 2 GM in Sodium Chlor 0.9% Inj 96 ML IV.SIG PRN (15:41)
[2018-04-07] MEDS ORDERED: Acetaminophen 325 MG Tablet PO PRN (15:41)
[2018-04-07] MEDS ORDERED: Potassium Chlor 20 mEq Premix 20 MEQ/100 ML PIGGYBACK IV.SIG PRN (15:41)
[2018-04-07] MEDS ORDERED: Calcium Gluconate Inj 1 GM in Sodium Chlor 0.9% Inj 100 ML IV.SIG PRN (15:41)
[2018-04-07] MEDS ORDERED: Menthol 5.8 MG Lozenge BUCCAL PRN (15:41)
[2018-04-07 15:52] LABS: Activated Partial Thrombo Time 28.5 sec (24.3-30.1); INR 1.1 Ratio; Prothrombin Time 11.1 sec (9.8-11.6)
[2018-04-07] MEDS: Morphine Inj 4 MG/ML Vial IV.PUSH PRN ×5 (16:20→22:51)
[2018-04-07 16:21] LABS: Alanine Aminotransferase 546 U/L (12-78); Albumin 3.9 g/dL (3.4-5.0); Alkaline Phosphatase 91 U/L (45-117); Anion Gap 8 meq/L (5-15); Aspartate Aminotransferase 234 U/L (15-37); Blood Urea Nitrogen 11 mg/dL (7-18); Calcium 8.6 mg/dL (8.5-10.1); Chloride 107 meq/L (98-107); Creatine Kinase 361 U/L (39-308); Glomerular Filtration Rate Greater Than 89 mL/min (>89); Glucose,Random 100 mg/dL (74-106); Magnesium 2.2 mg/dL (1.5-2.5); Sodium 139 meq/L (136-145)
[2018-04-07] MEDS: Multivitamin Inj 10 ML, Thiamine Inj 100 MG, Folic Acid Inj 1 MG in Sodium Chlor 0.9% I... IV.SIG SCH (16:21)
[2018-04-07 16:23] LABS: Potassium 5.1 meq/L (3.5-5.1)
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
[2018-04-07] MEDS ORDERED: Haloperidol Inj 5 MG/ML Ampul IV.PUSH PRN (16:29)
[2018-04-07 16:36] LABS: CKMB Percent 0.6 % (0.0-4.0)
[2018-04-07] MEDS: Senna/Docusate Sodium 8.6/50 MG Tablet PO SCH (20:34)
[2018-04-07] MEDS ORDERED: Zolpidem Tartrate 5 MG Tablet PO PRN (21:00)
[2018-04-08] MEDS: Morphine Inj 4 MG/ML Vial IV.PUSH PRN ×9 (02:19→23:26)
[2018-04-08 05:23] LABS: Alanine Aminotransferase 436 U/L (12-78); Albumin 3.6 g/dL (3.4-5.0); Anion Gap 8 meq/L (5-15); Aspartate Aminotransferase 152 U/L (15-37); Blood Urea Nitrogen 10 mg/dL (7-18); Calcium 8.4 mg/dL (8.5-10.1); Carbon Dioxide 29.4 meq/L (21.0-32.0); Chloride 106 meq/L (98-107); Glomerular Filtration Rate Greater Than 89 mL/min (>89); Glucose,Random 90 mg/dL (74-106); Lipase 218 U/L (73-393); Potassium 4.3 meq/L (3.5-5.1); Sodium 143 meq/L (136-145)
[2018-04-08 05:26] LABS: Alkaline Phosphatase 81 U/L (45-117); Creatine Kinase 222 U/L (39-308); Total Protein 7.1 g/dL (6.4-8.2)
[2018-04-08 06:14] LABS: Hepatitits B Surface Antigen Nonreactive (Nonreactive)
--- NOTE | 2018-04-08 10:23 | US ---
EXAM DATE: 04/08/2018 10:04 AM EDT AGE/SEX: 27 years / Male INDICATIONS: Elevated lab values. CLINICAL DATA: This is the patient's initial encounter. Patient reports that signs and symptoms have been present for 1 day and indicates a pain score of 0/10. MEDICAL/SURGICAL HISTORY: Hepatitis C. Alcohol abuse. None. [place] [facility] [place] 02/[place]. . MEASUREMENTS: Liver:__ 16.4 cm. Common Bile Duct:__ 5mm. Right Kidney:__ 11.4 x 4.1 x 1.6 cm. FINDINGS: Liver: There is some mild increased echogenicity of the liver parenchyma. No focal lesion or ductal d ilatation. Portal Vein: Hepatopedal flow seen in portal vein. Common Duct: No intraluminal mass or stone visualized. Gallbladder: Demonstrates no wall thickening or pericholecystic fluid. No stones visualized. Pancreas: Not well visualized. Right Kidney: Normal echotexture and cortical thickness. No mass or hydronephrosis. Other: None. CONCLUSION: 1. Mild increased echogenicity of the liver suggestive of some fatty infiltration. 2. No evidence of gallstones or biliary tract obstruction. Electronically signed by: Chris Weber MD 04/08/2018 10:22 AM EDT
[2018-04-08] MEDS: Senna/Docusate Sodium 8.6/50 MG Tablet PO SCH ×2 (11:21→20:27)
--- NOTE | 2018-04-08 12:36 | P.PNNS ---
Subjective Interval history: Pt awake and alert. He is pacing in room. Had some agitation earlier about his pain medication but he states he is okay now. Had nausea earlier which responded to medication. He complains of upper trapezius area pain extending into the posterior aspect of his head and into the temporal area and behind his eyes. He states he is an alcoholic. <Louie Marquez - Last Filed: 04/08/18 12:26> Physical Exam Vital signs: Vital Signs 04/07/18 15:28 04/07/18 15:31 04/07/18 15:34 Temperature Pulse Rate 87 Respiratory Rate 16 16 Blood Pressure 137/90 Pulse Oximetry 98 99 04/07/18 15:39 04/07/18 16:19 04/07/18 16:39 Temperature Pulse Rate 84 84 Respiratory Rate 16 20 16 Blood Pressure 127/80 122/62 Pulse Oximetry 94 L 98 04/07/18 16:52 04/07/18 17:00 04/07/18 17:22 Temperature Pulse Rate 69 Respiratory Rate 16 16 16 Blood Pressure 127/62 Pulse Oximetry 100 04/07/18 18:00 04/07/18 20:00 04/07/18 20:31 Temperature 98 F 98.5 F Pulse Rate 62 58 L Respiratory Rate 18 16 26 H Blood Pressure 121/65 116/63 Pulse Oximetry 99 99 04/07/18 22:55 04/08/18 00:00 04/08/18 04:00 Temperature 98.4 F 97.5 F L Pulse Rate 62 Respiratory Rate 16 16 12 Blood Pressure 114/65 121/56 L Pulse Oximetry 94 L 04/08/18 08:00 04/08/18 11:22 Temperature Pulse Rate Respiratory Rate 18 18 Blood Pressure Pulse Oximetry 94 L Intake & Output 04/07/18 04/08/18 04/08/18 18:59 06:59 18:59 Weight 72.575 kg 5 kg Other: # Urine Diapers 5 Weight On Admission 75.8 kg - Constitutional moderate distress (Appears anxious.), thin, cooperative, agitated (Periods of some agitation.) - Routine HEENT Exam Head: Present: normocephalic, atraumatic Eye: Present: EOMI, PERRL. Absent: scleral injection - Routine Neck Exam Present: trachea midline - Routine Respiratory Exam Present: CTA bilaterally. Absent: respiratory distress, rhonchi, wheezes - Routine Cardiovascular Exam Present: RRR, S1, S2. Absent: murmur - Routine Abdominal Exam Present: soft, normoactive bowel sounds. Absent: tenderness - Routine Extremities Exam Absent: cyanosis, edema - Routine Skin Exam Present: dry. Absent: intact, cyanosis, erythema - Routine Neurological Exam Present: alert, oriented X3, normal speech. Absent: sensory deficit, motor deficit, moving all extremities - Detailed Neurological Exam: Coma Scale Eye Opening: Spontaneous Verbal Response: Oriented Motor Response: Obey commands [place] Coma Scale Total: 15 - Routine Psychiatric Exam Present: normal affect, anxious <Louie Marquez - Last Filed: 04/08/18 12:26> Vital signs: Vital Signs 04/07/18 15:28 04/07/18 15:31 04/07/18 15:34 Temperature Pulse Rate 87 Respiratory Rate 16 16 Blood Pressure 137/90 Pulse Oximetry 98 99 04/07/18 15:39 04/07/18 16:19 04/07/18 16:39 Temperature Pulse Rate 84 84 Respiratory Rate 16 20 16 Blood Pressure 127/80 122/62 Pulse Oximetry 94 L 98 04/07/18 16:52 04/07/18 17:00 04/07/18 17:22 Temperature Pulse Rate 69 Respiratory Rate 16 16 16 Blood Pressure 127/62 Pulse Oximetry 100 04/07/18 18:00 04/07/18 20:00 04/07/18 20:31 Temperature 98 F 98.5 F Pulse Rate 62 58 L Respiratory Rate 18 16 26 H Blood Pressure 121/65 116/63 Pulse Oximetry 99 99 04/07/18 22:55 04/08/18 00:00 04/08/18 04:00 Temperature 98.4 F 97.5 F L Pulse Rate 62 Respiratory Rate 16 16 12 Blood Pressure 114/65 121/56 L Pulse Oximetry 94 L 04/08/18 08:00 04/08/18 09:00 04/08/18 11:22 Temperature 97.5 F L Pulse Rate 80 62 Respiratory Rate 16 18 Blood Pressure 120/71 Pulse Oximetry 94 L 04/08/18 12:00 Temperature 98 F Pulse Rate 71 Respiratory Rate 18 Blood Pressure 116/70 Pulse Oximetry Intake & Output 04/07/18 04/08/18 04/08/18 18:59 06:59 18:59 Intake Total 511.2 / 511.2 Balance 511.2 / 511.2 Weight 72.575 kg 5 kg Intake: IV 511.2 / 511.2 MVI-12 Inj 10 ML Thiamine Inj 511.2 / 511.2 100 MG Folvite Inj 1 MG In NS Inj 500 ML @ 127.8 mls/hr IV. SIG DAILY MAXIME Rx#:[id number] Other: # Urine Diapers 5 Weight On Admission 75.8 kg <Daljit Baron - Last Filed: 04/08/18 13:36> Assessment and Plan - Assessment (1) Traumatic brain injury with brief (less than 1 hour) loss of consciousness Code(s): S06.9X9A - Unspecified intracranial injury with loss of consciousness of unspecified duration, initial encounter Status: Acute (2) Cerebral contusion with loss of consciousness Code(s): S06.339A - Contusion and laceration of cerebrum, unspecified, with loss of consciousness of unspecified duration, initial encounter Status: Acute (3) Alcohol abuse Code(s): F10.10 - Alcohol abuse, uncomplicated Status: Acute - Plan A: TBI with bifrontal hemorrhagic contusions. Follow up CT head read by radiology: CONCLUSION: 1. Slight increase in edema within the hemorrhagic contusions within the frontal lobes. 2. No evidence of increasing mass effect 3. No evidence of new hemorrhage or contusion. P: Continue with Neuro checks Continue with SCDs. Continue with GI prophylaxis. Continue with CIWA protocol <Louie Marquez - Last Filed: 04/08/18 12:26> - Assessment (1) Traumatic brain injury with brief (less than 1 hour) loss of consciousness Code(s): S06.9X9A - Unspecified intracranial injury with loss of consciousness of unspecified duration, initial encounter Status: Acute (2) Cerebral contusion with loss of consciousness Code(s): S06.339A - Contusion and laceration of cerebrum, unspecified, with loss of consciousness of unspecified duration, initial encounter Status: Acute (3) Alcohol abuse Code(s): F10.10 - Alcohol abuse, uncomplicated Status: Acute - Attending Attestation The exam, history, and the medical decision-making described in the above note were completed with the assistance of the mid-level provider. I reviewed and agree with the findings presented. I attest that I had a [id number] encounter with the patient on the same day, and personally performed and documented my assessment and findings in the medical record. <Daljit Baron - Last Filed: 04/08/18 13:36>
[2018-04-08] MEDS: Multivitamin Inj 10 ML, Thiamine Inj 100 MG, Folic Acid Inj 1 MG in Sodium Chlor 0.9% I... IV.SIG SCH (12:38)
--- NOTE | 2018-04-08 18:01 | ECG ---
Date Performed: 04/07/2018 Time Performed: 15:20:02 PTAGE: 27 years EKG: Sinus rhythm WITH SINUS ARRHYTHMIA POSSIBLE LEFT ATRIAL ENLARGEMENT POSSIBLE RIGHT VENTRICULAR CONDUCTION DELAY B ORDERLINE ECG NO PREVIOUS TRACING DOCTOR: Lluvia Gunn Interpretating Date/Time 04/08/2018 17:58:24
[2018-04-08 22:54] LABS: Hepatitis A IgM Antibody Nonreactive (Nonreactive)
[2018-04-09] MEDS: Morphine Inj 4 MG/ML Vial IV.PUSH PRN ×3 (02:25→08:29)
[2018-04-09] MEDS: Senna/Docusate Sodium 8.6/50 MG Tablet PO SCH ×2 (08:21→22:26)
[2018-04-09] MEDS: LORazepam 1 MG Tablet PO PRN (08:27)
[2018-04-09] MEDS: Multivitamin Inj 10 ML, Thiamine Inj 100 MG, Folic Acid Inj 1 MG in Sodium Chlor 0.9% I... IV.SIG SCH (10:52)
--- NOTE | 2018-04-09 10:53 | P.PNNS ---
Subjective Interval history: Patient complaining of headache and neck pain. Wants increase in pain medication Physical Exam Vital signs: Vital Signs 04/08/18 11:22 04/08/18 12:00 04/08/18 16:00 Temperature 98 F 97.6 F Pulse Rate 71 69 Respiratory Rate 18 18 18 Blood Pressure 116/70 123/70 Pulse Oximetry 04/08/18 20:00 04/08/18 21:42 04/08/18 21:43 Temperature 97.6 F Pulse Rate 70 Respiratory Rate 16 18 17 Blood Pressure 124/63 Pulse Oximetry 99 04/09/18 00:00 04/09/18 03:14 04/09/18 04:00 Temperature 98.7 F 97.9 F Pulse Rate 79 55 L Respiratory Rate 18 15 14 Blood Pressure 129/59 L 92/46 L Pulse Oximetry 99 99 04/09/18 08:00 Temperature Pulse Rate Respiratory Rate Blood Pressure Pulse Oximetry 99 Intake & Output 04/08/18 04/09/18 04/09/18 18:59 06:59 18:59 Intake Total 1440 / 1440 511.2 / 511.2 Balance 1440 / 1440 511.2 / 511.2 Weight 73.5 kg Intake: IV 511.2 / 511.2 MVI-12 Inj 10 ML Thiamine Inj 511.2 / 511.2 100 MG Folvite Inj 1 MG In NS Inj 500 ML @ 127.8 mls/hr IV. SIG DAILY MAXIME Rx#:[id number] Oral 1440 / 1440 Oral Supplement 0 / 0 Other: # Voids 8 # Bowel Movements 0 Narrative: Alert and awake. Follows commands. Very anxious Pupils equal and reactive Moves all extremities well. Is able to get out of bed independently. CT of the head reviewed. Previously described hemorrhages are stable Assessment and Plan - Assessment (1) Traumatic brain injury with brief (less than 1 hour) loss of consciousness Code(s): S06.9X9A - Unspecified intracranial injury with loss of consciousness of unspecified duration, initial encounter Status: Acute - Plan A: TBI with bifrontal hemorrhagic contusions. Clinically the patient is stable. Plan is to continue neurological observation. Plan is to DC the morphine IV and increased the Roxicodone p.o. every 4 hours and add Flexeril 3 times daily
--- NOTE | 2018-04-09 12:00 | P.PNNPSY ---
- Behavior Mild: Impulsive/agitated - Progress Notes/Response to Treatment Contents of Sessions: Adjustment, Level of consciousness Time with Patient: 30 minutes Premorbid Psychological Status: Premorbid Cognitive, Emotional and Behavioral Status: Deferred. The patient has high school years of education and an unknown work history prior to this injury. The patient has no known prior psychiatric difficulties, as described above. Substance abuse history is unknown. Behavioral Reactions of Patient and Family/Support System: Tenuous. The patients family is experiencing ongoing issues of adjustment given the nature of the injury, and this aspect of recovery will require ongoing monitoring. Emotional/Behavioral Status of Patient and Family/Support System: Tenuous. Pertinent issues, if appropriate to this patients clinical care, are described in detail above. Maximizing Acute Care Outcome: It is recommended that the patient be monitored for emergent behavioral impulsivity as the medical condition evolves. This patients neuropathological challenges may limit rehabilitation potential going forward, and these challenges will require specialized therapeutic skills to maximize outcome. Additionally, the patients family is experiencing ongoing issues of adjustment given the traumatic nature of the injury, and they may benefit from ongoing psychological assistance. At this point in the recovery process, the patient does not have cognitive capacity as the patient is unable to understand a situation and its likely consequences, nor is the patient able to manipulate information rationally. Cognitive capacity will be assessed throughout the recovery process. Anticipated Problems: Ongoing areas of concern will include behavioral impulsivity, lack of insight and judgment, which is expected to improve with time and treatment. Presently , the patient is critically ill. Given the severity of the patient's injuries it is my clinical opinion that this patient will be unable to return to any type of productive employment for at least one year, perhaps longer and likely never. This patient is not considered safe to discharge home without supervision. Treatment Plan: This clinician will continue to follow with you throughout the course of this patients critical care treatment, and I will be available to meet with the patients family/support system to facilitate their understanding and the ongoing care of their family member. The goals of neuropsychological intervention shall be both educational and supportive to the family/support system as is deemed clinically appropriate. [place] COG Scale: Level IV Disinhibition Score: 28.00 Aggression Score: 17.50 Lability Score: 23.32 Agitated Behavior Total Score: 24 Progress Note Narrative: PTD 2. The patient is purposeful on sedation. He is likely a sedated Rancho IV at this point. He underwent DC yesterday. His agitation level is mild, per RN report and ABS scoring. ABS = 24 (28,17.5,23.3). I will follow.
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
[2018-04-10] MEDS: Senna/Docusate Sodium 8.6/50 MG Tablet PO SCH ×2 (08:21→21:13)
[2018-04-10] MEDS: LORazepam 1 MG Tablet PO PRN ×3 (08:21→23:31)
[2018-04-10] MEDS: Multivitamin Inj 10 ML, Thiamine Inj 100 MG, Folic Acid Inj 1 MG in Sodium Chlor 0.9% I... IV.SIG SCH (11:11)
--- NOTE | 2018-04-10 12:07 | P.PNNS ---
Subjective Interval history: Continues to complain of significant headaches. Wants an increase in his medication Physical Exam Vital signs: Vital Signs 04/09/18 16:00 04/09/18 20:00 04/10/18 00:00 Temperature 98.1 F 98.4 F 98.4 F Pulse Rate 74 68 57 L Respiratory Rate 26 H 18 13 Blood Pressure 136/61 121/71 109/58 L Pulse Oximetry 97 96 97 04/10/18 04:00 04/10/18 08:00 04/10/18 09:00 Temperature 98.6 F 98.6 F Pulse Rate 66 67 67 Respiratory Rate 17 12 Blood Pressure Pulse Oximetry 96 Intake & Output 04/09/18 04/10/18 04/10/18 18:59 06:59 18:59 Intake Total 2111.2 / 2111.2 1500 / 1500 Balance 2111.2 / 2111.2 1500 / 1500 Weight 74 kg Intake: IV 511.2 / 511.2 MVI-12 Inj 10 ML Thiamine Inj 511.2 / 511.2 100 MG Folvite Inj 1 MG In NS Inj 500 ML @ 127.8 mls/hr IV. SIG DAILY MAXIME Rx#:[id number] Oral 1600 / 1600 1500 / 1500 Oral Supplement 0 / 0 0 / 0 Other: # Voids 7 5 Date of Last Bowel Movement 04/09/18 04/09/18 # Bowel Movements 0 0 Narrative: Alert and awake. Follows commands well. Fluent speech Moves all extremities well. Able to ambulate independently Previous CT reviewed appears stable Assessment and Plan - Assessment (1) Traumatic brain injury with brief (less than 1 hour) loss of consciousness Code(s): S06.9X9A - Unspecified intracranial injury with loss of consciousness of unspecified duration, initial encounter Status: Acute - Plan A: TBI with bifrontal hemorrhagic contusions. Clinically the patient is stable. We will increase patient's [place]. Is able to be transferred to regular floor
[2018-04-11] MEDS: Senna/Docusate Sodium 8.6/50 MG Tablet PO SCH (08:50)
[2018-04-11] MEDS: LORazepam 1 MG Tablet PO PRN ×2 (08:52→13:20)
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
== END 2018-04-11 16:31 | disposition home or self-care (01) ==
LOC: NEPD 11:59 → NEDA 15:24 → N03 17:46 → N05 04-10 13:09
PROVIDERS: ADMIT Neurological Surgery; ATTEND Neurological Surgery